=== PATIENT | female | born 2000 | race Caucasian/White ===

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

== ENCOUNTER 2021-07-01 23:30 | Emergency (ER) | payer OTHER ==
[2021-07-02] VITALS: BP 108/62; PULSE 76; TEMP 97.9; BMI 24.9
[2021-07-02] MEDS ORDERED: ACETAMINOPHEN 500 MG TABLET (FP) PO ONE (00:12)
[2021-07-02] MEDS ORDERED: LIDOCAINE 5% TOPICAL PATCH TP ONE (00:13)
[2021-07-02] MEDS ORDERED: LIDOCAINE 5% TOPICAL PATCH ONE (00:15)
[2021-07-02] MEDS ORDERED: ACETAMINOPHEN 325 MG TABLET (FP) ONE (00:15)
[2021-07-02] MEDS ORDERED: LIDOCAINE PATCH REMOVAL MC SCH (22:00)
== END 2021-07-02 00:58 | disposition home or self-care (01) ==
LOC: JER 23:30
DX: S16.1XXA Strain of muscle, fascia and tendon at neck level, initial encounter (principal); V49.40XA Driver injured in collision with unspecified motor vehicles in traffic accident, initial encounter
CPT/HCPCS: 70450-TC; 72125-TC; 99284-25

== ENCOUNTER 2022-07-20 21:23 | Emergency (ER) | payer OTHER ==
[2022-07-20 21:30] VITALS: TEMP 98; BMI 24.3
[2022-07-20] MEDS ORDERED: METOCLOPRAMIDE HCL INJECTION 10 MG/2 ML VIAL IVPB ONE (23:26)
[2022-07-20] MEDS ORDERED: SODIUM CHLORIDE 1,000 ML IV STA (23:26)
[2022-07-20] MEDS ORDERED: ACETAMINOPHEN 1000 MG/100 ML BAG IVPB ONE (23:26)
[2022-07-20] MEDS ORDERED: METOCLOPRAMIDE HCL INJECTION 10 MG/2 ML VIAL ONE (23:44)
[2022-07-20] MEDS ORDERED: ACETAMINOPHEN INJECTION 100 ML IVPB ONE (23:44)
[2022-07-21 01:26] VITALS: BP 110/58; PULSE 81; RESP 14
[2022-07-21 01:39] LABS: URINE APPEARANCE CLEAR; URINE BILIRUBIN NEGATIVE (NEGATIVE); URINE COLOR YELLOW; URINE GLUCOSE (UA) NEGATIVE (NEGATIVE); URINE KETONE NEGATIVE (NEGATIVE); URINE LEUK ESTERASE NEGATIVE (NEGATIVE); URINE NITRITE NEGATIVE (NEGATIVE); URINE PROTEIN NEGATIVE (NEGATIVE); URINE UROBILINOGEN 0.2 mg/dL (0.2-1.0)
== END 2022-07-21 02:01 | disposition home or self-care (01) ==
LOC: JER 21:23
PROC: 3E0333Z Introduction of Anti-inflammatory into Peripheral Vein, Percutaneous Approach (ICD-10-PCS; principal; 2022-07-20)
PROC: 3E0337Z Introduction of Electrolytic and Water Balance Substance into Peripheral Vein, Percutaneous Approach (ICD-10-PCS; 2022-07-20)
PROC: 3E033GC Introduction of Other Therapeutic Substance into Peripheral Vein, Percutaneous Approach (ICD-10-PCS; 2022-07-21)
DX: O26.891 Other specified pregnancy related conditions, first trimester (principal); R51.9 Headache, unspecified; Z3A.14 14 weeks gestation of pregnancy
CPT/HCPCS: 81003; 99284-25

== ENCOUNTER 2023-01-19 03:30 | Inpatient (IN) | payer OTHER ==
[2023-01-19] MEDS: MISOPROSTOL 200 MCG TABLET PR SCH ×2 (03:54→09:56)
[2023-01-19] MEDS ORDERED: PROMETHAZINE HCL 25 MG/1 ML VIAL ONE (04:09)
[2023-01-19] MEDS ORDERED: MEPERIDINE HCL 25 MG/ML VIAL ONE (04:09)
[2023-01-19 04:46] LABS: BASO % 0.2 % (0-2.0); EOS % 0.4 % (0-4.5); HEMATOCRIT 33.8 % (32.4-45.2); HEMOGLOBIN 11.5 GM/dL (10.7-15.3); LYMPH % 20.3 % (8-40); MCH 28.5 pg (25.7-33.7); MCHC 34.1 g/dl (32.0-36.0); MEAN CELL VOLUME 83.4 fl (80-96); MEAN PLT VOLUME 8.1 fl (7.5-11.1); MONO % 9.4 % (3.8-10.2); NEUT % 69.7 % (42.8-82.8); PLATELET COUNT 191 10^3/uL (134-434); RBC 4.05 M/mm3 (3.60-5.2); WHITE BLOOD COUNT 10.8 K/mm3 (4.0-10.0)
[2023-01-19 05:10] LABS: POTASSIUM 3.9 mmol/L (3.5-5.1)
[2023-01-19 05:11] LABS: CALCIUM 8.9 mg/dL (8.5-10.1); INR 0.97 (0.83-1.09); PROTHROMBIN TIME (PATIENT) 11.2 SEC (9.7-13.0)
[2023-01-19 05:12] LABS: BLOOD UREA NITROGEN 11.5 mg/dL (7-18)
[2023-01-19 05:13] LABS: ACTIVATED PTT 27.5 SECONDS (25.2-36.5)
[2023-01-19 05:16] LABS: CREATININE 0.7 mg/dL (0.55-1.3)
[2023-01-19] MEDS ORDERED: OXYTOCIN 20 UNITS in 0.9% NS 20 UNIT/1,000 ML INFUS.BAG IV SCH (05:30)
[2023-01-19] MEDS ORDERED: BENZOCAINE 28 GM HEMORRHOIDAL OINTMENT TP PRN (05:30)
[2023-01-19] MEDS ORDERED: PROMETHAZINE HCL 25 MG/1 ML VIAL IVPB ONE (05:30)
[2023-01-19] MEDS ORDERED: oxyCODONE HCL 5 MG TABLET PO PRN (05:30)
[2023-01-19] MEDS ORDERED: WITCH HAZEL 50% (TUCKS) 40 PAD/JAR PAD TP PRN (05:30)
[2023-01-19] MEDS ORDERED: METHYLERGONOVINE MALEATE 0.2 MG/1 ML AMP IM PRN (05:30)
[2023-01-19] MEDS ORDERED: BENZOCAINE 20% 57 GM BOTTLE TP PRN (05:30)
[2023-01-19] MEDS ORDERED: BISACODYL 10 MG SUPP.RECT RC PRN (05:30)
[2023-01-19] MEDS ORDERED: PROMETHAZINE HCL 25 MG/1 ML VIAL IVPUSH ONE (05:30)
[2023-01-19] MEDS ORDERED: ACETAMINOPHEN 325 MG TABLET (FP) PO PRN (05:30)
[2023-01-19] MEDS ORDERED: METHYLERGONOVINE MALEATE 0.2 MG/1 ML AMP IM ONE (05:34)
[2023-01-19] MEDS ORDERED: MEPERIDINE HCL 25 MG/ML VIAL IVPUSH ONE (05:35)
[2023-01-19 05:40] VITALS: BMI 31.6
[2023-01-19] MEDS: PRENATAL VITAMINS W/ FOLIC ACID TABLET (FP) PO SCH (09:34)
[2023-01-19 09:39] LABS: BASO % 0.2 % (0-2.0); HEMATOCRIT 32.2 % (32.4-45.2); LYMPH % 6.5 % (8-40); MCH 28.2 pg (25.7-33.7); MCHC 34.2 g/dl (32.0-36.0); MEAN CELL VOLUME 82.6 fl (80-96); MEAN PLT VOLUME 8.2 fl (7.5-11.1); MONO % 4.9 % (3.8-10.2); NEUT % 88.4 % (42.8-82.8); PLATELET COUNT 211 10^3/uL (134-434); RDW 14.1 % (11.6-15.6); WHITE BLOOD COUNT 16.8 K/mm3 (4.0-10.0)
[2023-01-19 09:42] LABS: INR 0.99 (0.83-1.09); PROTHROMBIN TIME (PATIENT) 11.5 SEC (9.7-13.0)
[2023-01-19 09:45] LABS: ACTIVATED PTT 27.7 SECONDS (25.2-36.5)
[2023-01-19 09:58] LABS: BLOOD UREA NITROGEN 10.5 mg/dL (7-18); CALCIUM 8.3 mg/dL (8.5-10.1)
[2023-01-19 10:01] LABS: CREATININE 0.5 mg/dL (0.55-1.3)
[2023-01-20] MEDS: MISOPROSTOL 200 MCG TABLET PR SCH ×2 (00:53→00:54)
[2023-01-20 08:44] LABS: BASO % 0.3 % (0-2.0); EOS % 1.2 % (0-4.5); HEMATOCRIT 26.3 % (32.4-45.2); HEMOGLOBIN 8.9 GM/dL (10.7-15.3); LYMPH % 19.4 % (8-40); MCH 28.2 pg (25.7-33.7); MEAN CELL VOLUME 83.1 fl (80-96); MEAN PLT VOLUME 8.2 fl (7.5-11.1); MONO % 8.6 % (3.8-10.2); NEUT % 70.5 % (42.8-82.8); PLATELET COUNT 186 10^3/uL (134-434); RBC 3.16 M/mm3 (3.60-5.2); WHITE BLOOD COUNT 9.9 K/mm3 (4.0-10.0)
[2023-01-20] MEDS: PRENATAL VITAMINS W/ FOLIC ACID TABLET (FP) PO SCH (10:58)
[2023-01-20] MEDS: IBUPROFEN 600 MG TABLET (FP) PO PRN ×2 (10:59→22:17)
[2023-01-20] MEDS ORDERED: SENNOSIDES/DOCUSATE COMBO (SENNA PLUS) TABLET (UD) PO PRN (22:00)
[2023-01-21 08:43] VITALS: BP 119/83; PULSE 94; RESP 20; TEMP 98.7
[2023-01-21] MEDS: PRENATAL VITAMINS W/ FOLIC ACID TABLET (FP) PO SCH (10:38)
== END 2023-01-21 11:50 | disposition home or self-care (01) | DRG 560 ==
LOC: JLDR 03:30 → J3W 06:23
PROVIDERS: ADMIT Obstetrics & Gynecology; ATTEND Obstetrics & Gynecology
PROC: 10E0XZZ Delivery of Products of Conception, External Approach (ICD-10-PCS; principal; 2023-01-19)
PROC: 0HQ9XZZ Repair Perineum Skin, External Approach (ICD-10-PCS; 2023-01-19)
DX: O62.3 Precipitate labor (principal); O70.0 First degree perineal laceration during delivery; Z3A.40 40 weeks gestation of pregnancy; Z37.0 Single live birth
CPT/HCPCS: 36415; 80048; 85025; 85610; 85730; 86780; 86850; 86900; 86901

== ENCOUNTER 2024-09-26 22:04 | Emergency (ER) | payer OTHER ==
[2024-09-26 22:10] VITALS: BP 96/62; PULSE 80; RESP 18; TEMP 98.4; BMI 25.7
== END 2024-09-27 00:07 | disposition home or self-care (01) ==
LOC: JERFT 22:04
DX: M79.675 Pain in left toe(s) (principal); M79.89 Other specified soft tissue disorders
CPT/HCPCS: 73630-TC-LT; 99283-25